=== PATIENT | male | born 1960 | race Two or more races ===

== ENCOUNTER 2021-02-28 00:50 | Inpatient (IN) | payer MEDICAID ==
[~2021-02-28] VITALS: Ht 172.7 cm; Wt 68.5 kg
--- NOTE | 2021-02-28 01:03 | NUR ---
pt bib by ra. pt states he is weak denies cp sob states has a headache.
[2021-02-28] MEDS ORDERED: NITROGLYCERIN OINT 1 GM PACKET TP ONE ×2 (01:30→01:57)
[2021-02-28] MEDS ORDERED: ASPIRIN 81 MG TAB.CHEW PO ONE (01:30)
[2021-02-28] MEDS ORDERED: hydrALAZINE HCL 20 MG/1 ML VIAL IV ONE ×3 (01:30→12:30)
[2021-02-28 01:41] LABS: HEMATOCRIT 25.2 % (36.7-47.1); MEAN CORPUSCULAR HEMOGLOBIN 30.3 uug (23.8-33.4); PLATELET COUNT (AUTO) 59 K/uL (152-348)
[2021-02-28 01:57] LABS: CARBON DIOXIDE 30 mmol/L (21-32); CHLORIDE 98 mmol/L (98-107); CREATININE 5.3 mg/dL (0.6-1.3); GLUCOSE 160 mg/dL (74-106); UREA NITROGEN, BLOOD 40 mg/dL (7-18)
[2021-02-28] MEDS ORDERED: ASPIRIN 81 MG TAB.CHEW ONE (01:57)
[2021-02-28] MEDS ORDERED: hydrALAZINE HCL 20 MG/1 ML VIAL ONE ×4 (01:57→13:40)
[2021-02-28 02:12] LABS: ALANINE AMINOTRANSFERASE 12 U/L (16-63); ALKALINE PHOSPHATASE 163 U/L (50-136); ASPARTATE AMINOTRANSFERASE 13 U/L (15-37); BILIRUBIN,DIRECT 0.1 mg/dL (0.0-0.2); BILIRUBIN,TOTAL 0.5 mg/dL (0.2-1.0); TOTAL PROTEIN, SERUM 6.8 g/dL (6.4-8.2)
[2021-02-28] MEDS ORDERED: levoFLOXacin 500 MG/D5W 100ML PIGGYBACK IV ONE (02:15)
[2021-02-28 02:31] LABS: MAGNESIUM 2.2 mg/dL (1.8-2.4); PHOSPHOROUS 2.9 mg/dL (2.5-4.9)
[2021-02-28 02:32] LABS: *OCCULT BLOOD STOOL POSITIVE (NEGATIVE)
[2021-02-28] MEDS ORDERED: levoFLOXacin 500 MG/D5W 100 ML ONE (02:40)
[2021-02-28] MEDS ORDERED: CLONIDINE HCL 0.1 MG TABLET ONE ×2 (03:00→13:40)
[2021-02-28] MEDS ORDERED: CLONIDINE HCL 0.1 MG TABLET PO ONE ×2 (03:00→13:30)
--- NOTE | 2021-02-28 03:14 | NUR ---
spoke to Héctor at [facility] discussed care of pt labs xray meds given. They will arrange for transport to [facility], will call back with result of covid test results.
--- NOTE | 2021-02-28 03:28 | NUR ---
Dr. Jarvis called and spoke with Dr. Ybarra regarding pending transfer to [facility].
--- NOTE | 2021-02-28 03:33 | NUR ---
pt resting comfortably denies pain or sob.
[2021-02-28] MEDS ORDERED: ACET-2154 PO (03:38)
[2021-02-28] MEDS ORDERED: NIFE-60 PO (03:38)
[2021-02-28] MEDS ORDERED: HYDR100T27 PO (03:38)
[2021-02-28] MEDS ORDERED: HYDR-3972 PO (03:38)
[2021-02-28] MEDS ORDERED: ASPI81TA31 PO (03:38)
[2021-02-28] MEDS ORDERED: FERR325T28 PO (03:38)
[2021-02-28] MEDS ORDERED: INSU100V39 SQ (03:38)
[2021-02-28] MEDS ORDERED: METO25TA6 PO (03:38)
[2021-02-28] MEDS ORDERED: FURO20TA4 PO (03:38)
[2021-02-28] MEDS ORDERED: ATOR80TA PO (03:38)
[2021-02-28] MEDS ORDERED: FOLI0.8T2 PO (03:38)
[2021-02-28] MEDS ORDERED: SITA50TA PO (03:38)
[2021-02-28] MEDS ORDERED: CALC667T6 PO (03:38)
[2021-02-28] MEDS ORDERED: GABA-532 PO (03:38)
[2021-02-28] MEDS ORDERED: PANT40TA49 PO (03:38)
[2021-02-28] MEDS ORDERED: CLON0.2T PO (03:38)
[2021-02-28] MEDS ORDERED: MAG30ORA PO (03:38)
[2021-02-28] MEDS ORDERED: DEXT33GE7 PO (03:38)
[2021-02-28] MEDS ORDERED: CHOL500050 PO (03:38)
[2021-02-28] MEDS ORDERED: ONDA4TAB5 PO (03:38)
[2021-02-28] MEDS ORDERED: DOCU100C36 PO (03:38)
[2021-02-28] MEDS ORDERED: GLUC1KIT IM (03:38)
[2021-02-28] MEDS ORDERED: CLOP75TA33 PO (03:38)
[2021-02-28] MEDS ORDERED: SENN-18 PO (03:38)
[2021-02-28] MEDS ORDERED: MELA3TAB41 PO (03:38)
[2021-02-28] MEDS ORDERED: CLON0.1T PO (03:38)
[2021-02-28] MEDS ORDERED: TRAMADOL HCL 50 MG TABLET PO PRN ×2 (12:45→13:00)
[2021-02-28] MEDS ORDERED: ACETAMINOPHEN 325 MG TABLET PO PRN (12:45)
[2021-02-28] MEDS ORDERED: ONDANSETRON 4 MG/2 ML VIAL IV PRN (12:45)
[2021-02-28] MEDS ORDERED: Z GUARD REMEDY PASTE 57 GM TUBE TOP PRN (12:45)
[2021-02-28] MEDS ORDERED: hydrALAZINE HCL 20 MG/1 ML VIAL IV PRN ×2 (13:30→15:00)
[2021-02-28] MEDS ORDERED: levoFLOXacin 500 MG/D5W 500 MG in PREMIXED 1 EACH IV ONE (14:00)
--- NOTE | 2021-02-28 14:30 | NUR ---
ADMITTED A 60 MALE FROM [facility] DUE TO GENERALIZED WEAKNESS HIGH BLOOD PRESSURE AND ERSD. AWAKE ALERT AND ORIENT X4. NO SIGNS AND SYMPTOMS OF PAIN OR RESPIRATORY DISTRESS.L ABLE TO PARTICIPATE WITH ADMISSION ASSESSMENT. WELT CUTTER JUANITA ALLEN CAME IN AND GAVE ADMISSION ORDERS. PATIENT WILL BE UNDER BARB STATUS. STARTED ON VANCOMYCIN IV, NO ADVERSE AFFECTS NOTED.. PATIENT WAS ABLE TO EAT INDEPENDENTLY FINISHING 40% OF FOOD. SINUS RYTHM ON MONITOR
--- NOTE | 2021-02-28 14:30 | NUR ---
Pt upgraded to BARB due to B/P trend, rising.
[2021-02-28] MEDS ORDERED: SENNOSIDES 1 TABLET PO PRN (15:00)
[2021-02-28] MEDS ORDERED: VANCOMYCIN IV 750 MG in IV DEXTROSE 5% 250 ML IV ONE (15:00)
--- NOTE | 2021-02-28 15:51 | NUR ---
Gave 2nd report to Jennifer restrepo RN.
[2021-02-28 16:30] VITALS: BP 218/96
[2021-02-28] MEDS ORDERED: FUROSEMIDE 20 MG TABLET PO ONE (17:15)
[2021-02-28] MEDS ORDERED: NIFEdipine XL 30 MG TABSR PO ONE (17:15)
[2021-02-28] MEDS: DOCUSATE SODIUM 100 MG CAPSULE PO SCH (17:26)
[2021-02-28] MEDS: GABAPENTIN 100 MG CAPSULE PO SCH (17:26)
[2021-02-28] MEDS: hydrALAZINE HCL 50 MG TABLET PO SCH (17:27)
[2021-02-28] MEDS ORDERED: DEXTROSE 50% 50 ML DISP.SYRIN IV PRN (17:30)
--- NOTE | 2021-02-28 17:30 | NUR ---
NOTIFIED INTERACTIVE ART DIRECTOR JUANITA ALLEN OF BP OF 218/96. ADVISED TO START MEDICATION ORDERED. PROCARDIA, LASIX, ETC.
[2021-02-28 19:03] VITALS: BP 140/76
[2021-02-28] MEDS: INSULIN REGULAR, HUMAN 300 UNIT/3 ML VIAL SQ PRN (20:49)
[2021-02-28] MEDS: MELATONIN 3 MG TABLET PO SCH (20:50)
[2021-02-28] MEDS: ATORVASTATIN 40 MG TABLET PO SCH (20:50)
[2021-02-28] MEDS: METOPROLOL TARTRATE 25 MG TABLET PO SCH (20:52)
[2021-02-28] MEDS: BLOOD SUGAR DIAGNOSTIC 1 EACH STRIP VI SCH (20:54)
[2021-02-28] MEDS: CLONIDINE HCL 0.1 MG TABLET PO SCH (21:01)
[2021-02-28 21:39] VITALS: BP 131/56
[2021-03-01 00:26] VITALS: BP 96/64
[2021-03-01 04:07] VITALS: BP 114/75
[2021-03-01] MEDS: CLONIDINE HCL 0.1 MG TABLET PO SCH ×3 (06:00→22:05)
--- NOTE | 2021-03-01 06:19 | NUR ---
Patient rested well in between care; pt's blood pressure now controlled; pt c/o 10/20 generalized pain; ultram given PO with good result; pt instructed to collect sputum and placed in sputum truck driver rubbish collector container; also patient instructed to use Incentive Spirometer; instructions given via translation by ASIF Caldera.
[2021-03-01 06:50] LABS: HEMATOCRIT 23.5 % (36.7-47.1); MEAN CORPUSCULAR HEMOGLOBIN 30.2 uug (23.8-33.4); MEAN CORPUSCULAR VOLUME 90.2 fL (73.0-96.2); PLATELET COUNT (AUTO) 98 K/uL (152-348)
[2021-03-01] MEDS: BLOOD SUGAR DIAGNOSTIC 1 EACH STRIP VI SCH ×4 (06:57→21:00)
[2021-03-01] MEDS ORDERED: PANTOPRAZOLE SODIUM 40 MG TABLET.DR PO SCH (07:00)
[2021-03-01 07:11] LABS: NEUTROPHILS % (MANUAL) 0 % (42-75)
--- NOTE | 2021-03-01 07:21 | NUR ---
SEEN BY DR. ANDERSEN FOR NEPHRO CONSULT WITH ORDER FOR HEMODIALYSIS TODAY.
[2021-03-01 07:54] LABS: POTASSIUM 5.4 mmol/L (3.5-5.1)
[2021-03-01 08:08] VITALS: BP 187/88
[2021-03-01] MEDS: CHOLECALCIFEROL 1,000 UNIT TABLET PO SCH (08:12)
[2021-03-01] MEDS: FERROUS SULFATE 325 MG TABEC PO SCH (08:12)
[2021-03-01] MEDS: FOLIC ACID/VITAMIN B COMP W-C TABLET PO SCH (08:12)
[2021-03-01] MEDS: GABAPENTIN 100 MG CAPSULE PO SCH ×3 (08:12→17:25)
[2021-03-01] MEDS: DOCUSATE SODIUM 100 MG CAPSULE PO SCH ×2 (08:12→17:26)
[2021-03-01] MEDS: METOPROLOL TARTRATE 25 MG TABLET PO SCH ×2 (08:14→22:05)
[2021-03-01] MEDS: hydrALAZINE HCL 50 MG TABLET PO SCH ×3 (08:14→17:25)
[2021-03-01] MEDS ORDERED: ASPIRIN 81 MG TAB.CHEW PO SCH (09:00)
[2021-03-01] MEDS ORDERED: NIFEdipine XL 30 MG TABSR PO SCH (09:00)
[2021-03-01] MEDS ORDERED: CLOPIDOGREL 75 MG TABLET PO SCH (09:00)
[2021-03-01 11:21] VITALS: BP 178/89
[2021-03-01] MEDS: INSULIN REGULAR, HUMAN 300 UNIT/3 ML VIAL SQ PRN ×2 (11:25→22:26)
[2021-03-01] MEDS ORDERED: ALEN70TA80 PO (12:11)
[2021-03-01] MEDS ORDERED: ALPR1TAB7 PO (12:12)
--- NOTE | 2021-03-01 13:00 | NUR ---
HEMODIALYSIS TX COMPLETED PATIENT TOLERATED WELL. DIALYSIS FLUID [id number] MLS
--- NOTE | 2021-03-01 13:30 | NUR ---
MEDICATED WITH ZOFRAN FOR NAUSEA FEELING. OBSERVED
[2021-03-01] MEDS ORDERED: VANCOMYCIN IV 500 MG in IV DEXTROSE 5% 100 ML IV PRN (13:45)
[2021-03-01] MEDS ORDERED: VANCOMYCIN IV 1,000 MG in IV DEXTROSE 5% 250 ML IV ONE (14:00)
--- NOTE | 2021-03-01 14:10 | NUR ---
Received patient and report from MARCELLA Rodriguez. Began Vancomycin at 1400. Will continue to monitor patient.
[2021-03-01 15:31] VITALS: BP 192/87
[2021-03-01] MEDS: ALPRAZOLAM 0.5 MG TABLET PO SCH (17:25)
--- NOTE | 2021-03-01 18:19 | NUR ---
Received patient at 1410 from MARCELLA Rodriguez. Patient is resting comfortably in bed with no signs of distress or discomfort. Comfort measures provided. IV site intact and patent. Vancomycin started at 1400. Bed left in lowest position with call light within reach. Will endorse to overnight babysitter nurse.
[2021-03-01 21:02] VITALS: BP 190/90
[2021-03-01] MEDS: NIFEdipine XL 60 MG TABSR PO SCH (22:04)
[2021-03-01] MEDS: MELATONIN 3 MG TABLET PO SCH (22:05)
[2021-03-01] MEDS: PANTOPRAZOLE SODIUM 40 MG VIAL IV SCH (22:05)
[2021-03-01] MEDS: ATORVASTATIN 40 MG TABLET PO SCH (22:05)
--- NOTE | 2021-03-01 22:12 | NUR ---
Patient in bed awake alert and able to make needs known.Bp 190/90.Denies pain or discomfort.No n/v.No respiratory distress noted.All due meds given as ordered. Bp went down to 156/66.On 3LPM vi NC.Permca cath intact on right IJ.Dressing clean and dry.Will continue to monitor.
[2021-03-02 00:28] VITALS: BP 156/66
[2021-03-02 04:37] VITALS: BP 115/52
[2021-03-02 05:07] LABS: HEPATITIS B SURFACE AG Negative (Negative)
[2021-03-02] MEDS ORDERED: levoFLOXacin 500 MG/D5W 500 MG in PREMIXED 1 EACH IV SCH (06:00)
[2021-03-02] MEDS: CLONIDINE HCL 0.1 MG TABLET PO SCH ×3 (06:00→23:00)
[2021-03-02 06:41] LABS: HEMATOCRIT 22.9 % (36.7-47.1); MEAN CORPUSCULAR HEMOGLOBIN 30.4 uug (23.8-33.4); MEAN CORPUSCULAR VOLUME 90.8 fL (73.0-96.2); PLATELET COUNT (AUTO) 96 K/uL (152-348)
[2021-03-02 06:58] LABS: MAGNESIUM 1.9 mg/dL (1.8-2.4); POTASSIUM 5.1 mmol/L (3.5-5.1)
[2021-03-02] MEDS: BLOOD SUGAR DIAGNOSTIC 1 EACH STRIP VI SCH ×4 (07:58→20:50)
[2021-03-02 08:30] VITALS: BP 146/67
[2021-03-02] MEDS: FOLIC ACID/VITAMIN B COMP W-C TABLET PO SCH (11:16)
[2021-03-02] MEDS: NIFEdipine XL 60 MG TABSR PO SCH ×2 (11:16→20:34)
[2021-03-02] MEDS: CHOLECALCIFEROL 1,000 UNIT TABLET PO SCH (11:17)
[2021-03-02] MEDS: ALPRAZOLAM 0.5 MG TABLET PO SCH ×2 (11:17→17:00)
[2021-03-02] MEDS: DOCUSATE SODIUM 100 MG CAPSULE PO SCH ×2 (11:17→17:00)
[2021-03-02] MEDS: FERROUS SULFATE 325 MG TABEC PO SCH (11:18)
[2021-03-02] MEDS: PANTOPRAZOLE SODIUM 40 MG VIAL IV SCH ×2 (11:18→20:33)
[2021-03-02] MEDS: hydrALAZINE HCL 50 MG TABLET PO SCH ×3 (11:18→17:00)
[2021-03-02] MEDS: METOPROLOL TARTRATE 25 MG TABLET PO SCH ×2 (11:18→20:34)
[2021-03-02] MEDS: GABAPENTIN 100 MG CAPSULE PO SCH ×3 (11:18→17:00)
[2021-03-02 11:30] VITALS: BP 158/76
[2021-03-02] MEDS: INSULIN REGULAR, HUMAN 300 UNIT/3 ML VIAL SQ PRN ×2 (11:33→20:50)
[2021-03-02 16:00] VITALS: BP 156/81
--- NOTE | 2021-03-02 18:18 | NUR ---
Pt is a/o x 4, cooperative with care and compliant with medications. blood pressure medications held for 1300,1400, and 1700 due to pt undergoing hemodialysis. Per dialysis nurse, best to keep bp elevated. Order for thoracentesis in place for right lung, standing order for blood transfusion in polace by . Consent needed, will endorse to night cleaner due to hemodialysis still ongoing. Lab reported that there is no clerical dentist assistant for Type and Screen draw, they will send someone during night cleaner. Will endorse to night cleaner as well. No signs of acute distress, no complaint of pain at this time, call light within reach. IV patent.
--- NOTE | 2021-03-02 19:07 | NUR ---
Hemodialysis ended 1844, 3L removed. Pt vitals post hemodialysis is 155/78, HR 66.
[2021-03-02] MEDS: ATORVASTATIN 40 MG TABLET PO SCH (20:33)
[2021-03-02] MEDS: MELATONIN 3 MG TABLET PO SCH (20:34)
[2021-03-02 20:46] VITALS: BP 158/69
[2021-03-02] MEDS ORDERED: IV D5 1/2 NS 1000 ML 1,000 ML IV PRN (22:30)
[2021-03-03 00:15] VITALS: BP 139/67
[2021-03-03 05:07] VITALS: BP 137/68
[2021-03-03] MEDS: CLONIDINE HCL 0.1 MG TABLET PO SCH ×3 (06:04→21:09)
[2021-03-03] MEDS: BLOOD SUGAR DIAGNOSTIC 1 EACH STRIP VI SCH ×4 (06:37→20:51)
[2021-03-03 07:48] LABS: MEAN CORPUSCULAR HEMOGLOBIN 30.3 uug (23.8-33.4); MEAN CORPUSCULAR VOLUME 89.2 fL (73.0-96.2); PLATELET COUNT (AUTO) 111 K/uL (152-348)
[2021-03-03 07:56] LABS: BILIRUBIN,TOTAL 0.4 mg/dL (0.2-1.0); CREATININE 4.8 mg/dL (0.6-1.3); PHOSPHOROUS 3.8 mg/dL (2.5-4.9); TOTAL PROTEIN, SERUM 6.5 g/dL (6.4-8.2)
[2021-03-03 08:00] VITALS: BP 143/68
--- NOTE | 2021-03-03 08:04 | NUR ---
Slept throughout the [facility]. Denies pain or SOB. NPO after midnight for thoracentesis. Consent signed. IV site intact. Fluids ordered for the night due to NPO status, will D/C after thoracentesis. Endorsed to day shift.
[2021-03-03] MEDS ORDERED: EPOETIN ALFA 10,000 UNITS/ML VIAL SQ ONE (09:00)
[2021-03-03] MEDS ORDERED: EPOETIN ALFA-EPBX 10,000 UNIT/ML VIAL SQ ONE (09:00)
[2021-03-03] MEDS: hydrALAZINE HCL 50 MG TABLET PO SCH ×3 (09:47→17:00)
[2021-03-03] MEDS: FOLIC ACID/VITAMIN B COMP W-C TABLET PO SCH (09:48)
[2021-03-03] MEDS: DOCUSATE SODIUM 100 MG CAPSULE PO SCH ×2 (09:48→17:00)
[2021-03-03] MEDS: ALPRAZOLAM 0.5 MG TABLET PO SCH ×2 (09:48→17:46)
[2021-03-03] MEDS: CHOLECALCIFEROL 1,000 UNIT TABLET PO SCH (09:48)
[2021-03-03] MEDS: METOPROLOL TARTRATE 25 MG TABLET PO SCH ×2 (09:48→20:52)
[2021-03-03] MEDS: NIFEdipine XL 60 MG TABSR PO SCH ×2 (09:48→20:51)
[2021-03-03] MEDS: GABAPENTIN 100 MG CAPSULE PO SCH ×3 (09:48→17:00)
[2021-03-03] MEDS: FERROUS SULFATE 325 MG TABEC PO SCH (09:48)
[2021-03-03] MEDS: PANTOPRAZOLE SODIUM 40 MG VIAL IV SCH ×2 (09:49→20:50)
[2021-03-03 12:00] VITALS: BP 131/62
--- NOTE | 2021-03-03 12:00 | NUR ---
Pt is a/o x 4, titrated oxygen from 2.5 L to 2L, saturating 96%. Plan is to have a thoracentesis of right lung this afternoon, per ultrasound no need to be kept NPO for procedure. Pt is cooperative and understanding of care. Consent is signed in chart. call light within reach, no signs of acute distress or discomfort, no complaint of pain. Will continue to monitor.
[2021-03-03 16:00] VITALS: BP 137/65
[2021-03-03] MEDS: INSULIN REGULAR, HUMAN 300 UNIT/3 ML VIAL SQ PRN ×2 (17:48→21:05)
--- NOTE | 2021-03-03 19:30 | NUR ---
Received pt awake, alert and orientedx4. Pt in no acute distress. Iv intact. Safety and comfort provided. Will continue to monitor.
[2021-03-03 20:11] VITALS: BP 142/65
[2021-03-03] MEDS: ATORVASTATIN 40 MG TABLET PO SCH (20:50)
[2021-03-03] MEDS: MELATONIN 3 MG TABLET PO SCH (20:51)
--- NOTE | 2021-03-03 20:56 | NUR ---
Tylenol 650 mg prn given to pt for pain. Pt tolerated it well. Will continue to monitor.
--- NOTE | 2021-03-03 22:46 | NUR ---
At 2223h Dr. Breaux ordered to hold the Iv fluids of the pt. Pt in no acute distress. Will continue to monitor.
[2021-03-04 00:25] VITALS: BP 137/70
[2021-03-04 04:30] VITALS: BP 146/68
[2021-03-04] MEDS: CLONIDINE HCL 0.1 MG TABLET PO SCH ×2 (05:37→13:49)
--- NOTE | 2021-03-04 05:58 | NUR ---
Pt slept comfortably. Pt in sinus rhythm. Pt in no acute distress. Pt vital signs within normal limit.Pt on 3l nasal cannula.Safety and comfort provided. All needs are met. Will endorse to incoming nurse for continuity of care.
--- NOTE | 2021-03-04 06:00 | NUR ---
Pt refused Catapress medication. Pt advised to drink apple juice. Pt stated he will drink what I provided him. Will endorse to incoming nurse. Pt stable.
[2021-03-04] MEDS: BLOOD SUGAR DIAGNOSTIC 1 EACH STRIP VI SCH ×3 (06:44→16:51)
[2021-03-04] MEDS: PANTOPRAZOLE SODIUM 40 MG VIAL IV SCH (08:43)
[2021-03-04] MEDS: CHOLECALCIFEROL 1,000 UNIT TABLET PO SCH (08:44)
[2021-03-04] MEDS: hydrALAZINE HCL 50 MG TABLET PO SCH ×3 (08:44→17:03)
[2021-03-04] MEDS: NIFEdipine XL 60 MG TABSR PO SCH (08:44)
[2021-03-04] MEDS: DOCUSATE SODIUM 100 MG CAPSULE PO SCH ×2 (08:44→17:03)
[2021-03-04] MEDS: FERROUS SULFATE 325 MG TABEC PO SCH (08:44)
[2021-03-04] MEDS: ALPRAZOLAM 0.5 MG TABLET PO SCH ×2 (08:45→17:04)
[2021-03-04] MEDS: GABAPENTIN 100 MG CAPSULE PO SCH ×3 (08:45→17:04)
[2021-03-04] MEDS: FOLIC ACID/VITAMIN B COMP W-C TABLET PO SCH (08:45)
[2021-03-04] MEDS: METOPROLOL TARTRATE 25 MG TABLET PO SCH (08:46)
[2021-03-04 11:54] VITALS: BP 164/76
[2021-03-04] MEDS: INSULIN REGULAR, HUMAN 300 UNIT/3 ML VIAL SQ PRN (12:17)
--- NOTE | 2021-03-04 12:45 | NUR ---
PT AAO X4 Mal[place]ian speaking able to let his needs known today pt had Hemodialysis ended 1245, 3L of fluid removed. Pt vitals post hemodialysis is 161/82, HR 66. Medications given as order HOB elevated call light and all need it items within reach
--- NOTE | 2021-03-04 15:36 | NUR ---
Pt schedule to be discharge today at 1600 back to [facility] pt refused for picture taken of the sacral area redness attempt X 3 continue to refused.
[2021-03-04 16:00] VITALS: BP 169/82
[2021-03-04] MEDS ORDERED: NEPRO (VANILLA) 237 ML CAN PO SCH (17:00)
[2021-03-04 17:03] VITALS: BP 169/82
--- NOTE | 2021-03-04 20:03 | NUR ---
PATIENT IS AAOX4, DISCHARGE INSTRUCTIONS GIVEN TO PATIENT STATES HE UNDERSTAND PATIENT STATES HE GOES BACK TO [facility] PATIENT COVID TEST WAS DONE WITH NEGATIVE RESULTS.LEFT IN STABLE CONDITION HEEL LINING PASTER VIA AMBULANCE ALL PERSONAL BELONGINGS GIVEN IV AND ID BAND REMOVED REPORT GIVEN TO ANGIE NARANJO.
[2021-03-05] MEDS ORDERED: ALENDRONATE SODIUM 70 MG TABLET PO SCH (07:00)
== END 2021-03-04 18:15 | DRG 194 ==
LOC: ER 01:43 → TELE3 12:40 → TELE-TD3 17:11 → TELE3 03-01 10:46
PROVIDERS: ADMIT Nurse Practitioner Family; ATTEND Hospitalist
PROC: 5A1D70Z Performance of Urinary Filtration, Intermittent, Less than 6 Hours Per Day (ICD-10-PCS; principal; 2021-03-01)
PROC: 0W993ZZ Drainage of Right Pleural Cavity, Percutaneous Approach (ICD-10-PCS; 2021-03-03)
DX: I13.2 Hypertensive heart and chronic kidney disease with heart failure and with stage 5 chronic kidney disease, or end stage renal disease (principal); D69.6 Thrombocytopenia, unspecified; J90 Pleural effusion, not elsewhere classified; E44.0 Moderate protein-calorie malnutrition; N18.6 End stage renal disease; D63.8 Anemia in other chronic diseases classified elsewhere; E88.09 Other disorders of plasma-protein metabolism, not elsewhere classified; E11.22 Type 2 diabetes mellitus with diabetic chronic kidney disease; K92.2 Gastrointestinal hemorrhage, unspecified; I50.33 Acute on chronic diastolic (congestive) heart failure; I16.0 Hypertensive urgency; Z99.2 Dependence on renal dialysis; Z20.822 Contact with and (suspected) exposure to COVID-19; Z83.3 Family history of diabetes mellitus; E78.5 Hyperlipidemia, unspecified; R53.1 Weakness; D50.9 Iron deficiency anemia, unspecified; Z79.4 Long term (current) use of insulin
CPT/HCPCS: 32555; 36415; 70030-TC; 71045; 83550; 83735; 84100; 85025; 85610; 85730; 86706; 86850; 86900; 86901; 87040; 87070; 87340; 87400; 93005; 93307; 97161; A4663; C9113; G0378; J0360; J0885; J1815; J1956; J2405; J3370; J7030; J7050; J7060